=== PATIENT | male | born 1995 | race Caucasian/White ===

== ENCOUNTER 2017-12-24 17:50 | Emergency (ER) | payer SELFPAY ==
--- NOTE | 2017-12-24 18:09 | EDPHY ---
H & P Time Seen by Provider: 12/24/17 17:51 HPI/ROS: CHIEF COMPLAINT: Seizure HISTORY OF PRESENT ILLNESS: History from the patient EMS as well as his cousin Star who is here. 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 Brought in by EMS and now he feels fine except for his tongue hurts a little bit. He had history of a concussion in 5th grade with the seizure but no other medical history REVIEW OF SYSTEMS: Eye: no change in vision ENT: Tongue abrasion. Cardiac: no chest pain or syncope Pulmonary: no cough or SOB Abdomen: no vomiting, diarrhea, abdominal pain Musculoskeletal: no back pain or neck pain Skin: no rash Neuro: no headache Constitutional: no fever : no urinary symptoms A comprehensive 10 point review of systems is otherwise negative aside from elements mentioned in the history of present illness. PAST MEDICAL HISTORY: Concussion in 5th grade Social history: Marijuana but no other drugs General Appearance: Alert and conversant, cooperative. Eyes: No scleral icterus. Pupils equal and reactive extraocular motion intact , right vertex of the scalp hematoma. ENT, Mouth: Left anterior tongue abrasion. Respiratory: Normal respiratory effort, breath sounds equal, lungs are clear to auscultation. Cardiovascular: Regular rate and rhythm. Gastrointestinal: Abdomen is soft and non tender. Neurological: Alert, face symmetric, normal motor and sensory in extremities. Not tremulous. Normal [id number] bilaterally. Speech fluent normally oriented at this time. Skin: Warm and dry, no rashes. Musculoskeletal: No cervical thoracic or lumbar spine tenderness. No extremity tenderness or deformity. Psychiatric: Not agitated. Emergency Department course/MDM: Convincing story for 1st ever grand mal seizure. Plan for head CT, EKG, CBC and chemistry. 1841: CT head shows scalp hematoma otherwise negative per Dr. Tafoya. 1906: Results discussed with the patient and his cousin. Likely first-time grand mal seizure. Precautions given with neurology follow-up. Warnings about no driving. Normal mental status now. Smoking Status: Current every day smoker Constitutional: Initial Vital Signs Temperature (C) 37.0 C 12/24/17 17:55 Heart Rate 102 H 12/24/17 17:55 Respiratory Rate 18 12/24/17 17:55 Blood Pressure 155/82 H 12/24/17 17:55 O2 Sat (%) 94 12/24/17 17:55 O2 Delivery Mode Room Air Allergies/Adverse Reactions: No Known Allergies Allergy (Unverified 12/24/17 18:04) Home Medications: Medication Instructions Recorded NK [No Known Home Meds] 12/24/17 Medical Decision Making - Diagnostics EKG Interpretation: 12-lead EKG interpreted by me; official reading is in trace master. My interpretation is sinus rhythm rate 79 with nonspecific T-wave abnormalities otherwise normal intervals. Imaging Results: Imaging Impressions Head CT 12/24/17 18:05 Impression: Right parietal scalp hematoma; otherwise normal noncontrast CT of the brain. Results called to Dr. Quincy Chen at 6:40 PM at the time of the interpretation. Imaging: Discussed imaging studies w/ fisher scallop Radiologist Differential Diagnosis: Differential diagnosis considered for a seizure including but not limited to electrolyte abnormality, alcohol withdrawal, epilepsy, head injury, syncope - Data Points Laboratory Results: Laboratory Results 12/24/17 17:57 12/24/17 17:57 12/24/17 12/24/17 17:57 17:57 WBC 13.78 10^3/uL H 10^3/uL (3.80-9.50) RBC 5.04 10^6/uL 10^6/uL (4.40-6.38) Hgb 15.5 g/dL g/dL (13.7-17.5) Hct 46.9 % % (40.0-51.0) MCV 93.1 fL fL (81.5-99.8) MCH 30.8 pg pg (27.9-34.1) MCHC 33.0 g/dL g/dL (32.4-36.7) RDW 13.1 % % (11.5-15.2) Plt Count 348 10^3/uL 10^3/uL (150-400) MPV 9.4 fL fL (8.7-11.7) Neut % (Auto) 45.0 % % (39.3-74.2) Lymph % (Auto) 45.4 % H % (15.0-45.0) Dickenson % (Auto) 8.9 % % (4.5-13.0) Eos % (Auto) 0.3 % L % (0.6-7.6) Baso % (Auto) 0.2 % L % (0.3-1.7) Nucleat RBC Rel Count 0.0 % % (0.0-0.2) Absolute Neuts (auto) 6.20 10^3/uL 10^3/uL (1.70-6.50) Absolute Lymphs (auto) 6.26 10^3/uL H 10^3/uL (1.00-3.00) Absolute Monos (auto) 1.23 10^3/uL H 10^3/uL (0.30-0.80) Absolute Eos (auto) 0.04 10^3/uL 10^3/uL (0.03-0.40) Absolute Basos (auto) 0.03 10^3/uL 10^3/uL (0.02-0.10) Absolute Nucleated RBC 0.00 10^3/uL 10^3/uL (0-0.01) Immature Gran % 0.2 % % (0.0-1.1) Immature Gran # 0.03 10^3/uL 10^3/uL (0.00-0.10) RBC/WBC/PLT Morphology TNP Platelet Estimate TNP Sodium 146 mEq/L H mEq/L (135-145) Potassium 3.8 mEq/L mEq/L (3.3-5.0) Chloride 103 mEq/L mEq/L (97-110) Carbon Dioxide 10 mEq/l L mEq/l (22-31) Anion Gap 33 mEq/L H mEq/L (8-16) BUN 10 mg/dL mg/dL (7-23) Creatinine 1.3 mg/dL mg/dL (0.7-1.3) Estimated GFR > 60 Glucose 110 mg/dL H mg/dL (70-100) Calcium 10.2 mg/dL mg/dL (8.5-10.4) Departure - Departure Disposition: Home, Routine, Self-Care Clinical Impression: First time seizure Condition: Good Instructions: New-Onset Seizure in Adults (ED) Additional Instructions: 1. No driving, dangerous activities such as riding a ski lift, swimming in a pool or other behavior that could put you or someone else at risk in the event of a recurrent seizure. You will need to be cleared by a neurologist to resume these activities. 2. Please return to the ED for recurrent seizure, headache, numbness, weakness, altered mental status or other concerns. 3. Please follow up with neurologist you have been referred to this week to schedule a follow-up appointment. if you need help with followup care you can contact our manager legal at [phone]. [phone] Referrals: Anthony Cabrera DO [Doctor of Osteopathy] - As per Instructions
[2017-12-24 18:12] LABS: PLATELET COUNT 348 10^3/uL (150-400)
--- NOTE | 2017-12-24 18:13 | CPEKG ---
Heart Rate: 79 RR Interval: 759 P-R Interval: 140 QRSD Interval: 98 QT Interval: 384 QTC Interval: 441 P Herndon: 56 QRS Herndon: 59 T Wave Herndon: -11 EKG Severity - ABNORMAL ECG - EKG Impression: SINUS RHYTHM EKG Impression: NONSPECIFIC T ABNORMALITIES, INFERIOR LEADS Electronically Signed By: Quincy Chen 24-Dec-2017 18:14:17
[2017-12-24 18:57] VITALS: BP 127/76
== END 2017-12-24 19:27 | disposition home or self-care (01) ==
DX: R56.9 Unspecified convulsions (principal); F17.200 Nicotine dependence, unspecified, uncomplicated